=== PATIENT | female | born 1955 | race Two or more races ===

== ENCOUNTER 2018-09-03 07:01 | Emergency (ER) | payer SELFPAY ==
[~2018-09-03] VITALS: Ht 157.5 cm; Wt 103.0 kg
[2018-09-03] MEDS ORDERED: DEXT 5%/0.9% NACL 1,000 ML IV ONE (07:45)
[2018-09-03 08:08] LABS: CLARITY URINE CLEAR (CLEAR); COLOR URINE YELLOW (YELLOW); KETONES URINE NEGATIVE (NEGATIVE); LEUKOCYTE ESTERASE URINE 1+ (NEGATIVE); NITRITE URINE NEGATIVE (NEGATIVE); OCCULT BLOOD URINE NEGATIVE (NEGATIVE); PROTEIN URINE NEGATIVE (NEGATIVE); SPECIFIC GRAVITY URINE 1.008 (1.005-1.030); UROBILINOGEN URINE 0.2 E.U./dL (0.2-1.0)
[2018-09-03 08:16] LABS: BASOPHILS % 0.6 % (0.0-2.0); HEMATOCRIT. 31.9 % (36.0-48.0); HEMOGLOBIN. 10.4 g/dL (12.0-16.0); LYMPHOCYTES % 12.1 % (20.0-50.0); MEAN CORPUSCULAR HEMOGLOBIN 29.1 pg (28.0-32.0); MEAN PLATELET VOLUME 8.2 fl (7.4-10.4); MONOCYTES % 6.8 % (2.0-8.0); NEUTROPHILS % 79.5 % (40.0-76.0); PLATELET 231 x1000/uL (130-400); RED BLOOD CELL COUNT 3.58 mill/uL (4.2-5.4)
[2018-09-03 08:24] LABS: CHLORIDE 106 mEq/L (98-107)
[2018-09-03 08:36] LABS: *AMPHETAMINES SCREEN URINE NEGATIVE (NEGATIVE); *BARBITURATES SCREEN URINE NEGATIVE (NEGATIVE); *BENZODIAZEPINES SCREEN URINE NEGATIVE (NEGATIVE); *COCAINE SCREEN URINE NEGATIVE (NEGATIVE)
[2018-09-03 08:37] LABS: BETA HYDROXYBUTYRATE 0.1 mMol/L (0.0-0.3)
[2018-09-03 08:37] LABS: CANNABINOID URINE SCREEN NEGATIVE (NEGATIVE); METHADONE URINE SCREEN NEGATIVE (NEGATIVE); OPIATES URINE SCREEN NEGATIVE (NEGATIVE); PHENCYCLIDINE URINE SCREEN NEGATIVE (NEGATIVE)
[2018-09-03 10:57] VITALS: BP 138/95
== END 2018-09-03 12:10 | disposition left against medical advice (07) ==
LOC: ER 07:01 → EDBEDREQ 11:34 → EDBEDREQTM 11:35 → ER 12:10 → ENRESERV 12:46 → CANBEDREQ 16:37
DX: E11.641 Type 2 diabetes mellitus with hypoglycemia with coma (principal); N17.0 Acute kidney failure with tubular necrosis; E86.0 Dehydration; I13.0 Hypertensive heart and chronic kidney disease with heart failure and stage 1 through stage 4 chronic kidney disease, or unspecified chronic kidney disease; I50.9 Heart failure, unspecified; E11.21 Type 2 diabetes mellitus with diabetic nephropathy; N18.9 Chronic kidney disease, unspecified; D63.1 Anemia in chronic kidney disease; E83.51 Hypocalcemia; E78.00 Pure hypercholesterolemia, unspecified; Z79.84 Long term (current) use of oral hypoglycemic drugs; E66.01 Morbid (severe) obesity due to excess calories; Z68.41 Body mass index [BMI] 40.0-44.9, adult
CPT/HCPCS: 36415; 71045; 80053; 80305; 81003; 82010; 82962; 83880; 84484; 85025; 93005; 96360; 99284; J7042